=== PATIENT | male | born 1990 | race Caucasian/White ===

== ENCOUNTER 2017-06-09 20:28 | Inpatient (IN) | payer OTHER ==
[~2017-06-09] VITALS: Ht 175.3 cm; Wt 58.0 kg
[2017-06-09 20:31] VITALS: Ht 175.3 cm; Wt 58.0 kg
[2017-06-09] MEDS ORDERED: SOD CHLORIDE 0.9% 1,000 ML IV STA ×2 (20:34→22:30)
[2017-06-09] MEDS ORDERED: LORAZEPAM 2 MG INJ IV STA (20:34)
[2017-06-09] MEDS ORDERED: IBUP200C11 PO (22:13)
[2017-06-09] MEDS ORDERED: LORAZEPAM 2 MG INJ IV ONE (22:30)
--- NOTE | 2017-06-09 22:46 | ERA ---
ER Documentation Chief Complaint Date/Time DATE: 06/09/17 TIME: 22:42 Chief Complaint BIB RA FROM HOME FOR METH USE X 3 DAYS HPI This is a 27-year-old male who is brought in via EMS after his family wanted him arrested for using methamphetamine. The patient states that he has been using methamphetamine for 3 days. He states that he used methamphetamine just prior to arrival. He denies any suicidal homicidal ideation. He otherwise has no complaints. Family members not accompanying the patient upon arrival. ROS All systems reviewed and are negative except as per history of present illness. Medications Home Meds Reported Medications Ibuprofen* (Advil*) 200 Mg Capsule, 200 MG PO Q6H Y for PAIN, CAP 06/09/17 Allergies Allergies: Coded Allergies: No Known Allergy (Unverified , 06/09/17) PMhx/Soc Medical and Surgical Hx: pt denies Medical Hx, pt denies Surgical Hx Hx Alcohol Use: Yes Hx Substance Use: Yes Hx Tobacco Use: Yes Smoking Status: Current every day smoker FmHx Family History: No diabetes Physical Exam Vitals Vital Signs Date Time Temp Pulse Resp B/P Pulse Ox O2 Delivery O2 Flow Rate FiO2 06/09/17 22:21 98.0 109 22 149/95 98 Room Air 06/09/17 20:31 98.5 131 18 126/81 100 Physical Exam General: Disheveled and slightly agitated but otherwise cooperative Head: Normocephalic, atraumatic. Eyes: Pupils equally reactive, EOM intact ENT: Moist mucous membranes Neck: Supple, no lymphadenopathy Respiratory: Lungs clear bilaterally, no distress Cardiovascular: tachy, no murmurs, rubs, or gallops Abdominal: Soft, non-tender, non-distended, no peritoneal signs : Deferred MSK: No edema, no unilateral swelling, 5/5 strength Neurologic: Alert and oriented, moving all extremities, normal speech, no focal weakness, no cerebellar signs Skin: No rash Psych: Normal moodDenies suicidal ideation Results 24 hrs Current Medications Medications (Trade) Dose Ordered Sig/Rola Route PRN Reason Start Time Stop Time Status Last Admin Dose Admin Sodium Chloride (NS) 1,000 ml @ 1,000 mls/hr Q1H STAT IV 06/09/17 20:34 06/09/17 21:33 DC 06/09/17 20:46 Lorazepam 1 mg 1 mg ONCE STAT IV 06/09/17 20:34 06/09/17 20:36 DC 06/09/17 20:46 Sodium Chloride (NS) 1,000 ml @ 1,000 mls/hr Q1H STAT IV 06/09/17 22:30 06/09/17 23:29 06/09/17 22:41 Lorazepam (Ativan) 2 mg ONCE ONCE IV 06/09/17 22:30 06/09/17 22:31 DC 06/09/17 22:41 Procedures/MDM MEDICAL DECISION MAKING: The patient's presentation is consistent with acute methamphetamine intoxication and sympathomimetic intoxication I have a much lower clinical concern for clinically significant traumatic brain injury, meningitis, significant electrolyte disturbance or rhabdomyolysis The patient's workup will include symptom control and observation for sobriety The patient's presentation is most consistent with acute methamphetamine intoxication leading to acute encephalopathy. The patient is protecting their airway. The patient has no signs or symptoms concerning for impending respiratory failure and does not require intubation at this time. The patient will require observation in the emergency room to allow for metabolization. Once the patient is able to ambulate on their own accord, navigate the community the patient can be safely discharged from the emergency room. ER COURSE: The patient was given 1 L of saline, 1 mg of Ativan. However the patient remains agitated and tachycardic at 120. Patient was given a second liter of IV fluids and 2 more milligrams of Ativan with improved symptomatology. The patient will require observation in the emergency department until he has metabolized his methamphetamines. The patient is not suicidal. We are not a detox center and the patient's family was informed via the nurse that the patient will need to be discharged, professor of social work resources and outpatient detox center information will be provided to the patient upon discharge. He is not suicidal and not a danger to himself or others. Observation Note: Indication: Methamphetamine intoxication Duration: Greater than 4 hours Family history: As described above The patient was observed with serial exams over the above timeframe. The patient continued to be well-appearing, and observation continued without complication. I kept the patient and/or family informed of laboratory and diagnostic imaging results throughout the emergency room course. DISPOSITION PLAN: Patient endorsed a Dr. Hernández, once sober and appropriate he will be discharged Departure Diagnosis: Primary Impression: Overdose of sympathomimetic agent Qualified Code: T44.901A - Overdose of sympathomimetic agent, accidental or unintentional, initial encounter Additional Impression: Methamphetamine abuse Condition: Stable CHAGO FINLEY MD Jun 09, 2017 22:46
[2017-06-10] MEDS ORDERED: DIPHENHYDRAMINE 50 MG INJ IM ONE (00:30)
[2017-06-10] MEDS ORDERED: HALOPERIDOL 5 MG INJ IM ONE (00:30)
[2017-06-10] MEDS ORDERED: PANTOPRAZOLE (EC) 40 MG TAB PO ONE (10:00)
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
[2017-06-10 11:02] LABS: CALCIUM 9.7 mg/dl (8.4-10.2); CREATININE 1.22 mg/dl (0.61-1.24)
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
[2017-06-10 12:44] LABS: BASOPHIL # 0.1 10^3/ul (0.0-0.1); BASOPHILS % 0.5 % (0.0-2.0); EOSINOPHILS # 0.1 10^3/ul (0.0-0.5); EOSINOPHILS % 0.6 % (0.0-7.0); HEMATOCRIT 46.2 % (42.0-52.0); HEMOGLOBIN 15.8 g/dl (14.0-18.0); LYMPHOCYTES # 1.9 10^3/ul (0.8-2.9); LYMPHOCYTES % 18.6 % (15.0-51.0); MEAN CORPUSCULAR HGB CONC 34.2 g/dl (32.0-37.0); MEAN CORPUSCULAR VOLUME 90.6 fl (82.0-101.0); MEAN PLATELET VOLUME 10.7 fl (7.4-10.4); MONOCYTE # 0.7 10^3/ul (0.3-0.9); MONOCYTES % 6.2 % (0.0-11.0); NEUTROPHIL # 7.7 10^3/ul (1.6-7.5); NEUTROPHILS % 73.8 % (39.0-77.0); PLATELET COUNT 173 10^3/UL (140-415); WHITE BLOOD COUNT 10.5 10^3/ul (4.8-10.8)
[2017-06-10] MEDS ORDERED: SOD CHLORIDE 0.9% 2,000 ML IV ONE (13:00)
[2017-06-10] MEDS ORDERED: ACETAMINOPHEN 325 MG TAB PO PRN ×2 (13:30→14:30)
[2017-06-10] MEDS ORDERED: ONDANSETRON 4 MG INJ IV PRN ×2 (13:30→14:30)
[2017-06-10] MEDS ORDERED: ACETAMINOPHEN 650 MG SUPP PR PRN (14:30)
[2017-06-10] MEDS ORDERED: NACL 0.9% 3 ML SYG IV SCH (14:30)
[2017-06-10] MEDS ORDERED: MAGNESIUM HYDROXIDE 30ML CUP PO PRN (14:30)
[2017-06-10] MEDS ORDERED: DOCUSATE SODIUM 100 MG CAP PO PRN (14:30)
[2017-06-10] MEDS ORDERED: LORAZEPAM 2 MG INJ IV PRN (14:30)
[2017-06-10] MEDS ORDERED: BISACODYL 10 MG SUPP PR PRN (14:30)
[2017-06-10] MEDS: SOD CHLORIDE 0.9% 1,000 ML IV SCH ×2 (16:35→19:55)
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
[2017-06-10 17:00] VITALS: TEMP 98.3
[2017-06-10] MEDS ORDERED: OLANZAPINE (ODT) 5 MG TAB ODT PRN (17:00)
[2017-06-10 21:20] VITALS: BP 130/78; RESP 22
[2017-06-10] MEDS ORDERED: traMADol 50 MG TAB PO ONE (23:30)
[2017-06-10] MEDS ORDERED: traMADol 50 MG TAB PO PRN (23:30)
[2017-06-11 02:35] VITALS: BP 127/75; RESP 22
[2017-06-11] MEDS: SOD CHLORIDE 0.9% 1,000 ML IV SCH ×3 (04:06→22:04)
[2017-06-11] MEDS: PANTOPRAZOLE 40 MG INJ IV SCH (05:20)
[2017-06-11 07:27] LABS: ALBUMIN 3.2 g/dl (3.3-4.9); ALBUMIN/GLOBULIN RATIO 1.28; BILIRUBIN,INDIRECT 0.2 mg/dl (0-1.1); BILIRUBIN,TOTAL 0.2 mg/dl (0.2-1.3); CALCIUM 8.6 mg/dl (8.4-10.2); CHOL/HDL RATIO 2.3 RATIO; CREATININE 0.9 mg/dl (0.61-1.24); MAGNESIUM 1.9 mg/dl (1.7-2.5); PHOSPHORUS 3.2 mg/dl (2.5-4.9); POTASSIUM 3.8 mmol/L (3.5-5.1); TOTAL PROTEIN 5.7 g/dl (6.1-8.1)
[2017-06-11 08:00] LABS: T3 UPTAKE 40.2 % (23.5-40.5)
[2017-06-11 08:14] LABS: THYROID STIMULATING HORMONE 1.43 MIU/L (0.465-4.680)
--- NOTE | 2017-06-11 11:53 | RADRPT ---
PROCEDURE: XR Foot. CLINICAL INDICATION: Right foot swelling, rule out fracture TECHNIQUE: AP, lateral and oblique views of the right foot was obtained. The images were reviewed on a PACS workstation. COMPARISON: None FINDINGS: The bones of the foot appear intact, with no evidence of fracture, dislocation, or subluxation. The joint spaces are preserved. Bone mineralization is normal. No significant soft tissue swelling is se en. IMPRESSION: No acute fracture or dislocation of the right foot. RPTAT: QQ Physician Zoraida Date Time Electronically viewed and signed by Physician Zoraida on 06/11/2017 11:53 /
[2017-06-11] MEDS: GABAPENTIN 100 MG CAP PO SCH ×2 (13:05→21:34)
--- NOTE | 2017-06-11 16:00 | PN ---
Date/Time of Note Date/Time of Note DATE: 06/11/17 TIME: 15:58 Assessment/Plan VTE Prophylaxis VTE Prophylaxis Intervention: SCD's Lines/Catheters IV Catheter Type (from Nrsg): Peripheral IV Assessment/Plan Assessment/Plan 1. Altered mental status secondary to methamphetamine use. Of note patient reportedly smokes multivitamin every day however the day prior to admission he did admit to swallowing a bag of methamphetamine. Patient more oriented at this time. Cessation advised at this time. adz worker to follow. 2. Suicide attempt. Patient seen by telepsych outbound sales consultant. Continue on Zyprexa Zydis 5 mg orally every 8 hours as needed for agitation. Tentative plan for inpatient psychiatric transfer once medically stable. Continue on 5150 hold for now. 3. Methamphetamine abuse. Cessation advised. adz worker to follow. 4. Rhabdomyolysis. Continue aggressive IV hydration. CK total pending 5. Right Ankle pain- possible sprain, will order x ray right ankle, 3 views Family requested meeting, will have public health social worker to work on it SCD Fof DVT prophylaxis Subjective 24 Hr Interval Summary Free Text/Dictation c/o right ankle pain, BP stable, on Sitter Exam/Review of Systems Vital Signs Vitals Vital Signs Date Time Temp Pulse Resp B/P Pulse Ox O2 Delivery O2 Flow Rate FiO2 06/11/17 02:35 98.5 78 22 127/75 100 06/10/17 17:00 Room Air Intake and Output 06/10/17 06/10/17 06/11/17 15:00 23:00 07:00 Intake Total 2125 ml Balance 2125 ml Exam Constitutional: alert, other (More oriented but does appear to be in withdrawals from methamphetamine use) Head: normocephalic Eyes: nl conjunctiva Respiratory: wheezing Cardiovascular: other (Regular rate to tachycardic) Musculoskeletal: nl extremities to inspection Extremities: normal pulses Skin: other (Noted with abrasions on bilateral upper and lower extremities) Results Result Diagram: 06/10/17 1032 06/11/17 0548 Results 24 hrs Laboratory Tests Test 06/11/17 05:48 Sodium Level 140 Potassium Level 3.8 Chloride Level 108 Carbon Dioxide Level 28 Anion Gap 8 Blood Urea Nitrogen 12 # Creatinine 0.90 Glucose Level 102 # Hemoglobin A1c 5.1 Calcium Level 8.6 Phosphorus Level 3.2 Magnesium Level 1.9 Total Bilirubin 0.2 Direct Bilirubin 0.00 Indirect Bilirubin 0.2 Aspartate Amino Transf (AST/SGOT) 737 H Alanine Aminotransferase (ALT/SGPT) 241 H Alkaline Phosphatase 56 Total Protein 5.7 L Albumin 3.2 L Globulin 2.50 Albumin/Globulin Ratio 1.28 Triglycerides Level 77 Cholesterol Level 99 L LDL Cholesterol, Calculated 42 HDL Cholesterol 42 Cholesterol/HDL Ratio 2.3 Thyroid Stimulating Hormone (TSH) 1.430 Free Thyroxine Index 2.77 Thyroxine (T4) 6.9 Triiodothyronine (T3) Uptake 40.2 Medications Medications Current Medications Sodium Chloride (NS) 1,000 ml @ 125 mls/hr Q8H IV Last administered on 13:05; Admin Dose 125 MLS/HR; Start 06/10/17 at 14:04 Ondansetron HCl (Zofran Inj) 4 mg Q6H PRN IV NAUSEA AND/OR VOMITING; Start at 14:30 Acetaminophen (Tylenol Tab) 650 mg Q6H PRN PO PAIN LEVEL 1-3 OR FEVER Last administered on 06/10/17 19:55; Admin Dose 650 MG; Start 06/10/17 at 14:30 Acetaminophen (Tylenol Supp) 650 mg Q6H PRN [place] PAIN LEVEL 1-3 OR FEVER; Start 06/10/17 at 14:30 Docusate Sodium (Colace) 100 mg Q12H PRN PO CONSTIPATION; Start 06/10/17 at 14: 30 Magnesium Hydroxide (Milk Of Mag) 30 ml DAILY PRN PO CONSTIPATION; Start at 14:30 Bisacodyl (Dulcolax Supp) 10 mg DAILY PRN [place] CONSTIPATION; Start 06/10/17 at 14 :30 Pantoprazole (Protonix Iv) 40 mg DAILY@06 IV Last administered on 06/11/17 05: 20; Admin Dose 40 MG; Start 06/11/17 at 06:00 Lorazepam (Ativan) 0.5 mg Q2 PRN IV agitation; Start 06/10/17 at 14:30 Olanzapine (Zyprexa Zydis) 5 mg Q8 PRN ODT agitation; Start 06/10/17 at 17:00 Tramadol HCl (Ultram) 50 mg Q6H PRN PO pain Last administered on 06/11/17 08: 13; Admin Dose 50 MG; Start 06/10/17 at 23:30 Gabapentin (Neurontin) 100 mg BID PO Last administered on 06/11/17t 13:05; Admin Dose 100 MG; Start 06/11/17 at 11:00 PRINCE FRANCOIS MD Jun 11, 2017 16:00
[2017-06-11 19:37] VITALS: BP 138/88; RESP 19
[2017-06-12] MEDS: SOD CHLORIDE 0.9% 1,000 ML IV SCH ×3 (01:48→20:42)
[2017-06-12] MEDS: PANTOPRAZOLE 40 MG INJ IV SCH (05:03)
[2017-06-12] MEDS: GABAPENTIN 100 MG CAP PO SCH ×2 (08:24→20:41)
--- NOTE | 2017-06-12 23:58 | PN ---
Date/Time of Note Date/Time of Note DATE: 06/12/17 TIME: 23:58 Assessment/Plan VTE Prophylaxis VTE Prophylaxis Intervention: SCD's Lines/Catheters IV Catheter Type (from [facility]): Peripheral IV Urinary Cath still in place: No Assessment/Plan Chief Complaint/Hosp Course Impression and plan 1. Altered mental status secondary to methamphetamine use. Of note patient reportedly smokes multivitamin every day however the day prior to admission he did admit to swallowing a bag of methamphetamine. Improved at this time. ice cream vault worker following 2. Suicide attempt. Patient seen by telepsych loans consultant. Continue on Zyprexa Zydis 5 mg orally every 8 hours as needed for agitation. Tentative plan for inpatient psychiatric transfer once medically stable. Continue on 5150 hold for now. 3. Methamphetamine abuse. Cessation advised. ice cream vault worker to follow. 4. Rhabdomyolysis. Continue aggressive IV hydration. Still with elevated CK. Will await for clinical improvement DISPO/PLAN: cont iv hydration. monitor for downward trend of CK. d/c when medically stable Discussed plan of care with Dr. Hedrick Problems: Subjective 24 Hr Interval Summary Free Text/Dictation more awake and alert. comfortable at present Exam/Review of Systems Vital Signs Vitals Vital Signs Date Time Temp Pulse Resp B/P Pulse Ox O2 Delivery O2 Flow Rate FiO2 06/11/17 19:37 99.0 84 19 138/88 99 06/10/17 17:00 Room Air Intake and Output 06/11/17 06/11/17 06/12/17 15:00 23:00 07:00 Intake Total 1100 ml 1775 ml Balance 1100 ml 1775 ml Exam Constitutional: alert, oriented Psych: nl mood/affect Head: normocephalic Respiratory: clear to auscultation Cardiovascular: regular rate and rhythm Gastrointestinal: non-tender, soft Musculoskeletal: nl extremities to inspection Neurological: DELI COOK II-XII intact, nl mental status, nl speech Skin: other (noted with abrasians BUE and BLE ) Results Result Diagram: 06/10/17 1032 06/11/17 0548 Results 24 hrs Laboratory Tests Test 06/12/17 05:35 Creatine Kinase 90175 #H Medications Medications Current Medications Sodium Chloride (NS) 1,000 ml @ 125 mls/hr Q8H IV Last administered on t 20:42; Admin Dose 125 MLS/HR; Start 06/10/17 at 14:04 Ondansetron HCl (Zofran Inj) 4 mg Q6H PRN IV NAUSEA AND/OR VOMITING; Start at 14:30 Acetaminophen (Tylenol Tab) 650 mg Q6H PRN PO PAIN LEVEL 1-3 OR FEVER Last administered on 06/10/17 19:55; Admin Dose 650 MG; Start 06/10/17 at 14:30 Acetaminophen (Tylenol Supp) 650 mg Q6H PRN [place] PAIN LEVEL 1-3 OR FEVER; Start 06/10/17 at 14:30 Docusate Sodium (Colace) 100 mg Q12H PRN PO CONSTIPATION; Start 06/10/17 at 14: 30 Magnesium Hydroxide (Milk Of Mag) 30 ml DAILY PRN PO CONSTIPATION; Start at 14:30 Bisacodyl (Dulcolax Supp) 10 mg DAILY PRN [place] CONSTIPATION; Start 06/10/17 at 14 :30 Lorazepam (Ativan) 0.5 mg Q2 PRN IV agitation; Start 06/10/17 at 14:30 Olanzapine (Zyprexa Zydis) 5 mg Q8 PRN ODT agitation; Start 06/10/17 at 17:00 Tramadol HCl (Ultram) 50 mg Q6H PRN PO pain Last administered on 06/11/17 08: 13; Admin Dose 50 MG; Start 06/10/17 at 23:30 Gabapentin (Neurontin) 100 mg BID PO Last administered on 06/12/17 20:41; Admin Dose 100 MG; Start 06/11/17 at 11:00 Pantoprazole (Protonix Tab) 40 mg DAILY@06 PO ; Start 06/13/17 at 06:00 OMERO FIELD Jun 12, 2017 23:58
[2017-06-13] MEDS: PANTOPRAZOLE (EC) 40 MG TAB PO SCH (05:32)
[2017-06-13] MEDS: SOD CHLORIDE 0.9% 1,000 ML IV SCH ×3 (05:32→22:04)
[2017-06-13 06:17] LABS: BASOPHIL # 0.1 10^3/ul (0.0-0.1); BASOPHILS % 0.8 % (0.0-2.0); EOSINOPHILS # 0.4 10^3/ul (0.0-0.5); EOSINOPHILS % 4.2 % (0.0-7.0); HEMOGLOBIN 14.2 g/dl (14.0-18.0); LYMPHOCYTES # 3.1 10^3/ul (0.8-2.9); LYMPHOCYTES % 36.3 % (15.0-51.0); MEAN CORPUSCULAR HEMOGLOBIN 30.9 pg (29.0-33.0); MEAN CORPUSCULAR HGB CONC 33.8 g/dl (32.0-37.0); MEAN CORPUSCULAR VOLUME 91.5 fl (82.0-101.0); MEAN PLATELET VOLUME 10.8 fl (7.4-10.4); MONOCYTE # 0.9 10^3/ul (0.3-0.9); MONOCYTES % 10.1 % (0.0-11.0); NEUTROPHIL # 4.1 10^3/ul (1.6-7.5); NEUTROPHILS % 48.4 % (39.0-77.0); PLATELET COUNT 161 10^3/UL (140-415); RED BLOOD COUNT 4.59 10^6/ul (4.70-6.10); RED CELL DISTRIBUTION WIDTH 12.3 % (11.5-14.5); WHITE BLOOD COUNT 8.4 10^3/ul (4.8-10.8)
[2017-06-13 06:37] LABS: CALCIUM 9.6 mg/dl (8.4-10.2); CREATININE 0.84 mg/dl (0.61-1.24); POTASSIUM 5.2 mmol/L (3.5-5.1)
[2017-06-13 07:48] VITALS: BP 123/76; RESP 19
[2017-06-13] MEDS: GABAPENTIN 100 MG CAP PO SCH ×2 (10:33→20:00)
--- NOTE | 2017-06-13 13:06 | PN ---
Date/Time of Note Date/Time of Note DATE: 06/13/17 TIME: 13:04 Assessment/Plan VTE Prophylaxis VTE Prophylaxis Intervention: ambulation, SCD's Lines/Catheters IV Catheter Type (from [facility]): Peripheral IV Urinary Cath still in place: No Assessment/Plan Chief Complaint/Hosp Course Impression and plan 1. Altered mental status secondary to methamphetamine use. Of note patient reportedly smokes multivitamin every day however the day prior to admission he did admit to swallowing a bag of methamphetamine. Improved at this time. health outreach worker following 2. Suicide attempt. Patient seen by telepsych air quality consultant. Continue on Zyprexa Zydis 5 mg orally every 8 hours as needed for agitation. Tentative plan for inpatient psychiatric transfer once medically stable. Continue on 5150 hold for now. 3. Methamphetamine abuse. Cessation advised. health outreach worker following 4. Rhabdomyolysis. Continue aggressive IV hydration. Still with elevated CK. Will await for clinical improvement DISPO/PLAN: cont iv hydration. CK continues to downward trend. Await for further improvement. d/c when medically stable to inpatient psych facility Discussed plan of care with Dr. Hedrick Problems: Subjective 24 Hr Interval Summary Free Text/Dictation comfortable at present. no s/s of distress. 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, nl mental status, nl speech Skin: other (noted with abrasians BUE and BLE ) Results Result Diagram: 06/13/17 0536 06/13/17 0536 Results 24 hrs Laboratory Tests Test 06/13/17 05:36 White Blood Count 8.4 Red Blood Count 4.59 L Hemoglobin 14.2 Hematocrit 42.0 Mean Corpuscular Volume 91.5 Mean Corpuscular Hemoglobin 30.9 Mean Corpuscular Hemoglobin Concent 33.8 Red Cell Distribution Width 12.3 Platelet Count 161 Mean Platelet Volume 10.8 H Neutrophils % 48.4 Lymphocytes % 36.3 Monocytes % 10.1 Eosinophils % 4.2 Basophils % 0.8 Nucleated Red Blood Cells % 0.0 Neutrophils # 4.1 Lymphocytes # 3.1 H Monocytes # 0.9 Eosinophils # 0.4 Basophils # 0.1 Nucleated Red Blood Cells # 0.0 Sodium Level 143 Potassium Level 5.2 H Chloride Level 104 Carbon Dioxide Level 35 H Anion Gap 9 Blood Urea Nitrogen 9 Creatinine 0.84 Glucose Level 96 Calcium Level 9.6 Creatine Kinase 13168 #H Medications Medications Current Medications Sodium Chloride (NS) 1,000 ml @ 125 mls/hr Q8H IV Last administered on 05:32; Admin Dose 125 MLS/HR; Start 06/10/17 at 14:04 Ondansetron HCl (Zofran Inj) 4 mg Q6H PRN IV NAUSEA AND/OR VOMITING; Start at 14:30 Acetaminophen (Tylenol Tab) 650 mg Q6H PRN PO PAIN LEVEL 1-3 OR FEVER Last administered on 06/10/17 19:55; Admin Dose 650 MG; Start 06/10/17 at 14:30 Acetaminophen (Tylenol Supp) 650 mg Q6H PRN [place] PAIN LEVEL 1-3 OR FEVER; Start 06/10/17 at 14:30 Docusate Sodium (Colace) 100 mg Q12H PRN PO CONSTIPATION; Start 06/10/17 at 14: 30 Magnesium Hydroxide (Milk Of Mag) 30 ml DAILY PRN PO CONSTIPATION; Start at 14:30 Bisacodyl (Dulcolax Supp) 10 mg DAILY PRN [place] CONSTIPATION; Start 06/10/17 at 14 :30 Lorazepam (Ativan) 0.5 mg Q2 PRN IV agitation; Start 06/10/17 at 14:30 Olanzapine (Zyprexa Zydis) 5 mg Q8 PRN ODT agitation; Start 06/10/17 at 17:00 Tramadol HCl (Ultram) 50 mg Q6H PRN PO pain Last administered on 06/11/17 08: 13; Admin Dose 50 MG; Start 06/10/17 at 23:30 Gabapentin (Neurontin) 100 mg BID PO Last administered on 06/13/17 10:33; Admin Dose 100 MG; Start 06/11/17 at 11:00 Pantoprazole (Protonix Tab) 40 mg DAILY@06 PO Last administered on 06/13/17 05 :32; Admin Dose 40 MG; Start 06/13/17 at 06:00 OMERO FIELD Jun 13, 2017 13:06
[2017-06-13 14:15] VITALS: BP 134/75; RESP 18
[2017-06-13 20:00] VITALS: BP 135/91; RESP 20
[2017-06-14 02:00] VITALS: BP 129/87; RESP 20
[2017-06-14 06:02] LABS: BASOPHIL # 0.1 10^3/ul (0.0-0.1); BASOPHILS % 0.9 % (0.0-2.0); EOSINOPHILS # 0.4 10^3/ul (0.0-0.5); EOSINOPHILS % 4.6 % (0.0-7.0); HEMATOCRIT 41.3 % (42.0-52.0); HEMOGLOBIN 14.4 g/dl (14.0-18.0); LYMPHOCYTES # 2.9 10^3/ul (0.8-2.9); LYMPHOCYTES % 35.9 % (15.0-51.0); MEAN CORPUSCULAR HEMOGLOBIN 31.2 pg (29.0-33.0); MEAN CORPUSCULAR HGB CONC 34.9 g/dl (32.0-37.0); MEAN CORPUSCULAR VOLUME 89.4 fl (82.0-101.0); MONOCYTE # 0.8 10^3/ul (0.3-0.9); MONOCYTES % 9.9 % (0.0-11.0); NEUTROPHIL # 3.9 10^3/ul (1.6-7.5); NEUTROPHILS % 48.2 % (39.0-77.0); PLATELET COUNT 179 10^3/UL (140-415); RED BLOOD COUNT 4.62 10^6/ul (4.70-6.10); WHITE BLOOD COUNT 8.1 10^3/ul (4.8-10.8)
[2017-06-14] MEDS: SOD CHLORIDE 0.9% 1,000 ML IV SCH ×3 (06:17→22:27)
[2017-06-14] MEDS: PANTOPRAZOLE (EC) 40 MG TAB PO SCH (06:17)
[2017-06-14 06:32] LABS: CALCIUM 9.3 mg/dl (8.4-10.2); CREATININE 0.82 mg/dl (0.61-1.24); POTASSIUM 4.2 mmol/L (3.5-5.1)
[2017-06-14 07:36] VITALS: BP 129/78; RESP 20
[2017-06-14] MEDS: GABAPENTIN 100 MG CAP PO SCH ×2 (08:23→20:00)
--- NOTE | 2017-06-14 10:45 | PN ---
Date/Time of Note Date/Time of Note DATE: 06/14/17 TIME: 10:44 Assessment/Plan VTE Prophylaxis VTE Prophylaxis Intervention: ambulation Lines/Catheters IV Catheter Type (from [facility]): Peripheral IV Urinary Cath still in place: No Assessment/Plan Chief Complaint/Hosp Course 1. Suicidal ideation with suicidal attempt. Status post evaluation by telemetry psych. Patient on 5150 hold. Continue mood stabilizers. 2. Rhabdomyolysis. Continue IV hydration. Renal function within normal limits. 3. Substance abuse. Status post evaluation by telemetry psych. Cessation advised. 4. Acute encephalopathy. Most probably toxic metabolic secondary to drug overdose. Resolved. 5. Fluids, electrolytes, and nutrition. Regular diet. 6. DVT prophylaxis. Ambulation. 7. Plan. Continue aggressive IV hydration. Continue current care. Continue one-to-one sitter. We will discharge the patient to inpatient psych facility once the patient's rhabdomyolysis is better. Case discussed with . Problems: Subjective 24 Hr Interval Summary Free Text/Dictation Patient has a one-to-one sitter in place. Denies any suicidal ideations. Exam/Review of Systems Vital Signs Vitals Vital Signs Date Time Temp Pulse Resp B/P Pulse Ox O2 Delivery O2 Flow Rate FiO2 06/14/17 07:36 98.1 72 20 129/78 100 06/10/17 17:00 Room Air Intake and Output 06/13/17 06/13/17 06/14/17 15:00 23:00 07:00 Intake Total 1000 ml 2110 ml 1595 ml Balance 1000 ml 2110 ml 1595 ml Exam General: Adequately build 27 year-old male lying in bed in no apparent distress. HEENT: Normocephalic, atraumatic. Eyes: Anicteric sclerae, conjunctivae clear. ENT: Nasal septum midline, oral mucosa moist. Poor dentition. Neck supple, no JVD noticed. Respiratory: Bilaterally clear breath sounds. No use of accessory muscles of respiration. No adventitious breath sounds. Cardiovascular: S1, S2 heard. No murmurs or gallops. Abdomen: Soft, nontender, and nondistended. Bowel sounds positive in all 4 quadrants. Genitourinary: Deferred. Extremities: No cyanosis, no clubbing, no edema. Peripheral pulses palpable. Neurologic: Cranial nerves II through XII grossly intact. The patient is awake, alert, and oriented. Results Result Diagram: 06/14/17 0430 06/14/17 0430 Results 24 hrs Laboratory Tests Test 06/14/17 04:30 White Blood Count 8.1 Red Blood Count 4.62 L Hemoglobin 14.4 Hematocrit 41.3 L Mean Corpuscular Volume 89.4 Mean Corpuscular Hemoglobin 31.2 Mean Corpuscular Hemoglobin Concent 34.9 Red Cell Distribution Width 12.0 Platelet Count 179 Mean Platelet Volume 11.0 H Neutrophils % 48.2 Lymphocytes % 35.9 Monocytes % 9.9 Eosinophils % 4.6 Basophils % 0.9 Nucleated Red Blood Cells % 0.0 Neutrophils # 3.9 Lymphocytes # 2.9 Monocytes # 0.8 Eosinophils # 0.4 Basophils # 0.1 Nucleated Red Blood Cells # 0.0 Sodium Level 138 Potassium Level 4.2 Chloride Level 101 Carbon Dioxide Level 32 H Anion Gap 9 Blood Urea Nitrogen 14 Creatinine 0.82 Glucose Level 84 Calcium Level 9.3 Creatine Kinase 8640 #H Medications Medications Current Medications Sodium Chloride (NS) 1,000 ml @ 125 mls/hr Q8H IV Last administered on 06:17; Admin Dose 125 MLS/HR; Start 06/10/17 at 14:04 Ondansetron HCl (Zofran Inj) 4 mg Q6H PRN IV NAUSEA AND/OR VOMITING; Start at 14:30 Acetaminophen (Tylenol Tab) 650 mg Q6H PRN PO PAIN LEVEL 1-3 OR FEVER Last administered on 06/10/17 19:55; Admin Dose 650 MG; Start 06/10/17 at 14:30 Acetaminophen (Tylenol Supp) 650 mg Q6H PRN [place] PAIN LEVEL 1-3 OR FEVER; Start 06/10/17 at 14:30 Docusate Sodium (Colace) 100 mg Q12H PRN PO CONSTIPATION; Start 06/10/17 at 14: 30 Magnesium Hydroxide (Milk Of Mag) 30 ml DAILY PRN PO CONSTIPATION; Start at 14:30 Bisacodyl (Dulcolax Supp) 10 mg DAILY PRN [place] CONSTIPATION; Start 06/10/17 at 14 :30 Lorazepam (Ativan) 0.5 mg Q2 PRN IV agitation; Start 06/10/17 at 14:30 Olanzapine (Zyprexa Zydis) 5 mg Q8 PRN ODT agitation; Start 06/10/17 at 17:00 Tramadol HCl (Ultram) 50 mg Q6H PRN PO pain Last administered on 06/11/17 08: 13; Admin Dose 50 MG; Start 06/10/17 at 23:30 Gabapentin (Neurontin) 100 mg BID PO Last administered on 06/14/17 08:23; Admin Dose 100 MG; Start 06/11/17 at 11:00 Pantoprazole (Protonix Tab) 40 mg DAILY@06 PO Last administered on 06/14/17 06 :17; Admin Dose 40 MG; Start 06/13/17 at 06:00 SHAUN BRADEN NP Jun 14, 2017 10:45
[2017-06-14 14:44] LABS: BARBITURATES Negative (NEGATIVE)
[2017-06-14 14:45] LABS: BENZODIAZEPINES Negative (NEGATIVE); CANNABINOIDS Negative (NEGATIVE); COCAINE Negative (NEGATIVE); OPIATES Negative (NEGATIVE)
[2017-06-14 15:00] VITALS: BP 117/70; RESP 20
[2017-06-14 19:18] VITALS: BP 132/81; RESP 20
[2017-06-15 02:00] VITALS: BP 139/87; RESP 20
[2017-06-15] MEDS: PANTOPRAZOLE (EC) 40 MG TAB PO SCH (05:32)
[2017-06-15 05:53] LABS: BASOPHIL # 0.1 10^3/ul (0.0-0.1); BASOPHILS % 0.9 % (0.0-2.0); EOSINOPHILS # 0.4 10^3/ul (0.0-0.5); HEMATOCRIT 44.8 % (42.0-52.0); HEMOGLOBIN 15.3 g/dl (14.0-18.0); LYMPHOCYTES # 2.6 10^3/ul (0.8-2.9); LYMPHOCYTES % 33.6 % (15.0-51.0); MEAN CORPUSCULAR HGB CONC 34.2 g/dl (32.0-37.0); MEAN CORPUSCULAR VOLUME 90.7 fl (82.0-101.0); MEAN PLATELET VOLUME 10.6 fl (7.4-10.4); MONOCYTE # 0.8 10^3/ul (0.3-0.9); MONOCYTES % 9.7 % (0.0-11.0); NEUTROPHIL # 3.9 10^3/ul (1.6-7.5); NEUTROPHILS % 50.4 % (39.0-77.0); PLATELET COUNT 222 10^3/UL (140-415); RED BLOOD COUNT 4.94 10^6/ul (4.70-6.10); RED CELL DISTRIBUTION WIDTH 12.3 % (11.5-14.5); WHITE BLOOD COUNT 7.8 10^3/ul (4.8-10.8)
[2017-06-15] MEDS: SOD CHLORIDE 0.9% 1,000 ML IV SCH ×3 (06:00→22:10)
[2017-06-15 06:28] LABS: MAGNESIUM 1.8 mg/dl (1.7-2.5); PHOSPHORUS 4.1 mg/dl (2.5-4.9)
[2017-06-15 06:54] LABS: CALCIUM 9.4 mg/dl (8.4-10.2); CREATININE 0.85 mg/dl (0.61-1.24); POTASSIUM 4.5 mmol/L (3.5-5.1)
[2017-06-15 07:30] VITALS: BP 143/77; RESP 18
[2017-06-15] MEDS: GABAPENTIN 100 MG CAP PO SCH ×2 (09:41→20:54)
--- NOTE | 2017-06-15 10:27 | PN ---
Date/Time of Note Date/Time of Note DATE: 06/15/17 TIME: 10:27 Assessment/Plan VTE Prophylaxis VTE Prophylaxis Intervention: ambulation Lines/Catheters IV Catheter Type (from [facility]): Peripheral IV Urinary Cath still in place: No Assessment/Plan Chief Complaint/Hosp Course 1. Suicidal ideation with suicidal attempt. Status post evaluation by telemetry psych. Patient on 5150 hold. Continue mood stabilizers. 2. Rhabdomyolysis. Continue IV hydration. Renal function within normal limits. 3. Substance abuse. Status post evaluation by telemetry psych. Cessation advised. 4. Acute encephalopathy. Most probably toxic metabolic secondary to drug overdose. Resolved. 5. Fluids, electrolytes, and nutrition. Regular diet. 6. DVT prophylaxis. Ambulation. 7. Plan. Continue aggressive IV hydration. Continue current care. Continue one-to-one sitter. We will discharge the patient to inpatient psych facility once the patient's rhabdomyolysis is better. Case discussed with . Problems: Subjective 24 Hr Interval Summary Free Text/Dictation Continues to have a one-to-one sitter in place. Denies any anxiety. Exam/Review of Systems Vital Signs Vitals Vital Signs Date Time Temp Pulse Resp B/P Pulse Ox O2 Delivery O2 Flow Rate FiO2 06/15/17 07:30 98.6 80 18 143/77 98 Intake and Output 06/14/17 06/14/17 06/15/17 15:00 23:00 07:00 Intake Total 1000 ml 1992.5 ml 2257.5 ml Balance 1000 ml 1992.5 ml 2257.5 ml Exam General: Adequately build 27 year-old male lying in bed in no apparent distress. HEENT: Normocephalic, atraumatic. Eyes: Anicteric sclerae, conjunctivae clear. ENT: Nasal septum midline, oral mucosa moist. Poor dentition. Neck supple, no JVD noticed. Respiratory: Bilaterally clear breath sounds. No use of accessory muscles of respiration. No adventitious breath sounds. Cardiovascular: S1, S2 heard. No murmurs or gallops. Abdomen: Soft, nontender, and nondistended. Bowel sounds positive in all 4 quadrants. Genitourinary: Deferred. Extremities: No cyanosis, no clubbing, no edema. Peripheral pulses palpable. Neurologic: Cranial nerves II through XII grossly intact. The patient is awake, alert, and oriented. Results Result Diagram: 06/15/170 06/15/17 0440 Results 24 hrs Laboratory Tests Test 06/14/17 13:30 06/15/17 04:40 Urine Opiates Screen Negative Urine Barbiturates Negative Urine Amphetamines Screen Negative Urine Benzodiazepines Screen Negative Urine Cocaine Screen Negative Urine Cannabinoids Negative White Blood Count 7.8 Red Blood Count 4.94 Hemoglobin 15.3 Hematocrit 44.8 Mean Corpuscular Volume 90.7 Mean Corpuscular Hemoglobin 31.0 Mean Corpuscular Hemoglobin Concent 34.2 Red Cell Distribution Width 12.3 Platelet Count 222 # Mean Platelet Volume 10.6 H Neutrophils % 50.4 Lymphocytes % 33.6 Monocytes % 9.7 Eosinophils % 5.0 Basophils % 0.9 Nucleated Red Blood Cells % 0.0 Neutrophils # 3.9 Lymphocytes # 2.6 Monocytes # 0.8 Eosinophils # 0.4 Basophils # 0.1 Nucleated Red Blood Cells # 0.0 Sodium Level 141 Potassium Level 4.5 Chloride Level 102 Carbon Dioxide Level 32 H Anion Gap 12 Blood Urea Nitrogen 12 Creatinine 0.85 Glucose Level 79 Calcium Level 9.4 Phosphorus Level 4.1 Magnesium Level 1.8 Creatine Kinase 3000 #H Medications Medications Current Medications Sodium Chloride (NS) 1,000 ml @ 125 mls/hr Q8H IV Last administered on 06:00; Admin Dose 125 MLS/HR; Start 06/10/17 at 14:04 Ondansetron HCl (Zofran Inj) 4 mg Q6H PRN IV NAUSEA AND/OR VOMITING; Start at 14:30 Acetaminophen (Tylenol Tab) 650 mg Q6H PRN PO PAIN LEVEL 1-3 OR FEVER Last administered on 06/10/17 19:55; Admin Dose 650 MG; Start 06/10/17 at 14:30 Acetaminophen (Tylenol Supp) 650 mg Q6H PRN [place] PAIN LEVEL 1-3 OR FEVER; Start 06/10/17 at 14:30 Docusate Sodium (Colace) 100 mg Q12H PRN PO CONSTIPATION; Start 06/10/17 at 14: 30 Magnesium Hydroxide (Milk Of Mag) 30 ml DAILY PRN PO CONSTIPATION; Start at 14:30 Bisacodyl (Dulcolax Supp) 10 mg DAILY PRN [place] CONSTIPATION; Start 06/10/17 at 14 :30 Lorazepam (Ativan) 0.5 mg Q2 PRN IV agitation; Start 06/10/17 at 14:30 Olanzapine (Zyprexa Zydis) 5 mg Q8 PRN ODT agitation; Start 06/10/17 at 17:00 Tramadol HCl (Ultram) 50 mg Q6H PRN PO pain Last administered on 06/11/17 08: 13; Admin Dose 50 MG; Start 06/10/17 at 23:30 Gabapentin (Neurontin) 100 mg BID PO Last administered on 06/15/17 09:41; Admin Dose 100 MG; Start 06/11/17 at 11:00 Pantoprazole (Protonix Tab) 40 mg DAILY@06 PO Last administered on 06/15/17 05 :32; Admin Dose 40 MG; Start 06/13/17 at 06:00 SAHUN BRADEN NP Jun 15, 2017 10:27
[2017-06-15 13:59] VITALS: BP 134/76; RESP 20
[2017-06-15 19:42] VITALS: BP 134/80; RESP 18
[2017-06-16 02:00] VITALS: BP 129/76; RESP 21
[2017-06-16] MEDS: PANTOPRAZOLE (EC) 40 MG TAB PO SCH (05:31)
[2017-06-16 05:38] LABS: BASOPHIL # 0.1 10^3/ul (0.0-0.1); BASOPHILS % 0.7 % (0.0-2.0); EOSINOPHILS # 0.3 10^3/ul (0.0-0.5); EOSINOPHILS % 4.3 % (0.0-7.0); HEMOGLOBIN 14.7 g/dl (14.0-18.0); LYMPHOCYTES # 2.7 10^3/ul (0.8-2.9); LYMPHOCYTES % 34.8 % (15.0-51.0); MEAN CORPUSCULAR HEMOGLOBIN 30.8 pg (29.0-33.0); MEAN CORPUSCULAR HGB CONC 34.2 g/dl (32.0-37.0); MONOCYTE # 0.7 10^3/ul (0.3-0.9); MONOCYTES % 9.4 % (0.0-11.0); NEUTROPHIL # 3.9 10^3/ul (1.6-7.5); NEUTROPHILS % 50.3 % (39.0-77.0); PLATELET COUNT 229 10^3/UL (140-415); RED BLOOD COUNT 4.78 10^6/ul (4.70-6.10); RED CELL DISTRIBUTION WIDTH 12.2 % (11.5-14.5); WHITE BLOOD COUNT 7.7 10^3/ul (4.8-10.8)
[2017-06-16 06:16] LABS: CALCIUM 9.4 mg/dl (8.4-10.2); CREATININE 0.8 mg/dl (0.61-1.24); POTASSIUM 4.1 mmol/L (3.5-5.1)
[2017-06-16] MEDS: SOD CHLORIDE 0.9% 1,000 ML IV SCH ×3 (06:57→23:26)
[2017-06-16] MEDS: GABAPENTIN 100 MG CAP PO SCH ×2 (09:02→20:38)
[2017-06-16 09:03] VITALS: BP 132/84; PULSE 89; RESP 18
--- NOTE | 2017-06-16 12:02 | PN ---
Date/Time of Note Date/Time of Note DATE: 06/16/17 TIME: 12:02 Assessment/Plan VTE Prophylaxis VTE Prophylaxis Intervention: ambulation Lines/Catheters IV C[facility]ter Type (from [facility]): Peripheral IV Urinary Cath still in place: No Assessment/Plan Chief Complaint/Hosp Course 1. Suicidal ideation with suicidal attempt. Status post evaluation by telemetry psych. Patient on 5150 hold. Continue mood stabilizers. 2. Rhabdomyolysis. Continue IV hydration. Renal function within normal limits. 3. Substance abuse. Status post evaluation by telemetry psych. Cessation advised. 4. Acute encephalopathy. Most probably toxic metabolic secondary to drug overdose. Resolved. 5. Fluids, electrolytes, and nutrition. Regular diet. 6. DVT prophylaxis. Ambulation. 7. Plan. Continue aggressive IV hydration. Continue current care. Continue one-to-one sitter. We will discharge the patient to inpatient psych facility once the patient's rhabdomyolysis is better. Case discussed with . Problems: Subjective 24 Hr Interval Summary Free Text/Dictation Remains stable. Exam/Review of Systems Vital Signs Vitals Vital Signs Date Time Temp Pulse Resp B/P Pulse Ox O2 Delivery O2 Flow Rate FiO2 06/16/17 09:03 98.7 89 18 132/84 98 Room Air Intake and Output 06/15/17 06/15/17 06/16/17 15:00 23:00 07:00 Intake Total 1000 ml 2500 ml 1840 ml Output Total 400 ml Balance 1000 ml 2100 ml 1840 ml Exam General: Adequately build 27 year-old male lying in bed in no apparent distress. HEENT: Normocephalic, atraumatic. Eyes: Anicteric sclerae, conjunctivae clear. ENT: Nasal septum midline, oral mucosa moist. Poor dentition. Neck supple, no JVD noticed. Respiratory: Bilaterally clear breath sounds. No use of accessory muscles of respiration. No adventitious breath sounds. Cardiovascular: S1, S2 heard. No murmurs or gallops. Abdomen: Soft, nontender, and nondistended. Bowel sounds positive in all 4 quadrants. Genitourinary: Deferred. Extremities: No cyanosis, no clubbing, no edema. Peripheral pulses palpable. Neurologic: Cranial nerves II through XII grossly intact. The patient is awake, alert, and oriented. Results Result Diagram: 06/16/17 0429 06/16/17 0429 Results 24 hrs Laboratory Tests Test 06/16/17 04:29 White Blood Count 7.7 Red Blood Count 4.78 Hemoglobin 14.7 Hematocrit 43.0 Mean Corpuscular Volume 90.0 Mean Corpuscular Hemoglobin 30.8 Mean Corpuscular Hemoglobin Concent 34.2 Red Cell Distribution Width 12.2 Platelet Count 229 Mean Platelet Volume 10.0 Neutrophils % 50.3 Lymphocytes % 34.8 Monocytes % 9.4 Eosinophils % 4.3 Basophils % 0.7 Nucleated Red Blood Cells % 0.0 Neutrophils # 3.9 Lymphocytes # 2.7 Monocytes # 0.7 Eosinophils # 0.3 Basophils # 0.1 Nucleated Red Blood Cells # 0.0 Sodium Level 140 Potassium Level 4.1 Chloride Level 102 Carbon Dioxide Level 30 Anion Gap 12 Blood Urea Nitrogen 14 Creatinine 0.80 Glucose Level 84 Calcium Level 9.4 Creatine Kinase 1206 #H Medications Medications Current Medications Sodium Chloride (NS) 1,000 ml @ 125 mls/hr Q8H IV Last administered on 06:57; Admin Dose 125 MLS/HR; Start 06/10/17 at 14:04 Ondansetron HCl (Zofran Inj) 4 mg Q6H PRN IV NAUSEA AND/OR VOMITING; Start at 14:30 Acetaminophen (Tylenol Tab) 650 mg Q6H PRN PO PAIN LEVEL 1-3 OR FEVER Last administered on 06/10/17 19:55; Admin Dose 650 MG; Start 06/10/17 at 14:30 Acetaminophen (Tylenol Supp) 650 mg Q6H PRN [place] PAIN LEVEL 1-3 OR FEVER; Start 06/10/17 at 14:30 Docusate Sodium (Colace) 100 mg Q12H PRN PO CONSTIPATION; Start 06/10/17 at 14: 30 Magnesium Hydroxide (Milk Of Mag) 30 ml DAILY PRN PO CONSTIPATION; Start at 14:30 Bisacodyl (Dulcolax Supp) 10 mg DAILY PRN [place] CONSTIPATION; Start 06/10/17 at 14 :30 Lorazepam (Ativan) 0.5 mg Q2 PRN IV agitation; Start 06/10/17 at 14:30 Olanzapine (Zyprexa Zydis) 5 mg Q8 PRN ODT agitation; Start 06/10/17 at 17:00 Tramadol HCl (Ultram) 50 mg Q6H PRN PO pain Last administered on 06/11/17 08: 13; Admin Dose 50 MG; Start 06/10/17 at 23:30 Gabapentin (Neurontin) 100 mg BID PO Last administered on 06/16/17 09:02; Admin Dose 100 MG; Start 06/11/17 at 11:00 Pantoprazole (Protonix Tab) 40 mg DAILY@06 PO Last administered on 06/16/17 05 :31; Admin Dose 40 MG; Start 06/13/17 at 06:00 SHAUN BRADEN NP Jun 16, 2017 12:02
[2017-06-16 13:00] VITALS: BP 140/107; PULSE 71; RESP 16
[2017-06-16 19:43] VITALS: BP 128/62; RESP 18
[2017-06-17 02:04] VITALS: BP 137/65; RESP 20
[2017-06-17 06:00] LABS: BASOPHIL # 0.1 10^3/ul (0.0-0.1); BASOPHILS % 0.9 % (0.0-2.0); EOSINOPHILS # 0.4 10^3/ul (0.0-0.5); HEMATOCRIT 42.8 % (42.0-52.0); HEMOGLOBIN 14.4 g/dl (14.0-18.0); LYMPHOCYTES # 3.1 10^3/ul (0.8-2.9); LYMPHOCYTES % 34.7 % (15.0-51.0); MEAN CORPUSCULAR HEMOGLOBIN 30.4 pg (29.0-33.0); MEAN CORPUSCULAR HGB CONC 33.6 g/dl (32.0-37.0); MEAN CORPUSCULAR VOLUME 90.5 fl (82.0-101.0); MEAN PLATELET VOLUME 10.2 fl (7.4-10.4); MONOCYTE # 0.9 10^3/ul (0.3-0.9); MONOCYTES % 10.2 % (0.0-11.0); NEUTROPHIL # 4.4 10^3/ul (1.6-7.5); NEUTROPHILS % 49.4 % (39.0-77.0); PLATELET COUNT 221 10^3/UL (140-415); RED BLOOD COUNT 4.73 10^6/ul (4.70-6.10); RED CELL DISTRIBUTION WIDTH 12.7 % (11.5-14.5); WHITE BLOOD COUNT 8.9 10^3/ul (4.8-10.8)
[2017-06-17] MEDS: PANTOPRAZOLE (EC) 40 MG TAB PO SCH (06:02)
[2017-06-17 06:35] LABS: CALCIUM 9.7 mg/dl (8.4-10.2); CREATININE 0.71 mg/dl (0.61-1.24); POTASSIUM 4.3 mmol/L (3.5-5.1)
[2017-06-17 08:00] VITALS: BP 116/65; RESP 18
[2017-06-17] MEDS: GABAPENTIN 100 MG CAP PO SCH ×2 (08:20→21:28)
[2017-06-17] MEDS: SOD CHLORIDE 0.9% 1,000 ML IV SCH ×3 (08:21→22:04)
[2017-06-17 14:00] VITALS: BP 132/64; RESP 20
--- NOTE | 2017-06-17 15:24 | PN ---
Date/Time of Note Date/Time of Note DATE: 06/17/17 TIME: 15:22 Assessment/Plan VTE Prophylaxis VTE Prophylaxis Intervention: SCD's Lines/Catheters IV C[facility]ter Type (from [facility]): Peripheral IV Urinary Cath still in place: No Assessment/Plan Assessment/Plan 1. Suicidal ideation with suicidal attempt. Status post evaluation by telemetry psych. Patient on 5150 hold. Continue mood stabilizers. 2. Rhabdomyolysis. improved 3. Substance abuse. Status post evaluation by telemetry psych. Cessation advised. 4. Acute encephalopathy. Most probably toxic metabolic secondary to drug overdose. Resolved. 5. Medically cleared to transfer to psych facility Subjective 24 Hr Interval Summary Free Text/Dictation no complaint Exam/Review of Systems Vital Signs Vitals Vital Signs Date Time Temp Pulse Resp B/P Pulse Ox O2 Delivery O2 Flow Rate FiO2 06/17/17 08:00 98.6 72 18 116/65 96 06/16/17 13:00 Room Air Intake and Output 06/16/17 06/16/17 06/17/17 15:00 23:00 07:00 Intake Total 1000 ml 1480 ml 3605 ml Balance 1000 ml 1480 ml 3605 ml Exam Constitutional: alert, oriented, well developed Head: atraumatic, normocephalic Eyes: EOMI, PERRL, nl conjunctiva, nl lids ENMT: nl external ears & nose, nl lips & teeth, nl nasal mucosa & septum Neck: non-tender, supple Respiratory: clear to auscultation, normal air movement, No congested cough, No crackles/rales, No diminished breath sounds, No intercostal retraction, No labored breathing, No other, No respirations, No tactile fremitus, No wheezing Cardiovascular: nl pulses, regular rate and rhythm, No S3, No S4, No bruits, No diastolic murmur, No edema, No gallop, No irregular rhythm, No jugular venous distention (JVD), No murmurs/extra sounds, No other, No rub, No systolic murmur Gastrointestinal: nl liver, spleen, non-tender, soft, No ascites, No bowel sounds, No distended, No firm, No hepatomegaly, No mass , No other, No rebound or guarding, No splenomegaly, No surgical scars, No tender Musculoskeletal: nl extremities to inspection Extremities: normal pulses, No calf tenderness, No clubbing, No cyanosis, No edema, No other, No palpable cord, No pitting pedal edema, No tenderness Neurological: PAVILION CUTTER II-XII intact, nl mental status, nl speech, nl strength Skin: nl turgor Lymph: nl lymph nodes Results Result Diagram: 06/17/1744406/17/17444 Results 24 hrs Laboratory Tests Test 06/17/17 04:45 White Blood Count 8.9 Red Blood Count 4.73 Hemoglobin 14.4 Hematocrit 42.8 Mean Corpuscular Volume 90.5 Mean Corpuscular Hemoglobin 30.4 Mean Corpuscular Hemoglobin Concent 33.6 Red Cell Distribution Width 12.7 Platelet Count 221 Mean Platelet Volume 10.2 Neutrophils % 49.4 Lymphocytes % 34.7 Monocytes % 10.2 Eosinophils % 4.0 Basophils % 0.9 Nucleated Red Blood Cells % 0.0 Neutrophils # 4.4 Lymphocytes # 3.1 H Monocytes # 0.9 Eosinophils # 0.4 Basophils # 0.1 Nucleated Red Blood Cells # 0.0 Sodium Level 139 Potassium Level 4.3 Chloride Level 102 Carbon Dioxide Level 30 Anion Gap 11 Blood Urea Nitrogen 13 Creatinine 0.71 Glucose Level 87 Calcium Level 9.7 Creatine Kinase 670 H Medications Medications Current Medications Sodium Chloride (NS) 1,000 ml @ 125 mls/hr Q8H IV Last administered on 08:21; Admin Dose 125 MLS/HR; Start 06/10/17 at 14:04 Ondansetron HCl (Zofran Inj) 4 mg Q6H PRN IV NAUSEA AND/OR VOMITING; Start at 14:30 Acetaminophen (Tylenol Tab) 650 mg Q6H PRN PO PAIN LEVEL 1-3 OR FEVER Last administered on 06/10/17 19:55; Admin Dose 650 MG; Start 06/10/17 at 14:30 Acetaminophen (Tylenol Supp) 650 mg Q6H PRN [place] PAIN LEVEL 1-3 OR FEVER; Start 06/10/17 at 14:30 Docusate Sodium (Colace) 100 mg Q12H PRN PO CONSTIPATION; Start 06/10/17 at 14: 30 Magnesium Hydroxide (Milk Of Mag) 30 ml DAILY PRN PO CONSTIPATION; Start at 14:30 Bisacodyl (Dulcolax Supp) 10 mg DAILY PRN [place] CONSTIPATION; Start 06/10/17 at 14 :30 Lorazepam (Ativan) 0.5 mg Q2 PRN IV agitation; Start 06/10/17 at 14:30 Olanzapine (Zyprexa Zydis) 5 mg Q8 PRN ODT agitation; Start 06/10/17 at 17:00 Tramadol HCl (Ultram) 50 mg Q6H PRN PO pain Last administered on 06/11/17 08: 13; Admin Dose 50 MG; Start 06/10/17 at 23:30 Gabapentin (Neurontin) 100 mg BID PO Last administered on 06/17/17 08:20; Admin Dose 100 MG; Start 06/11/17 at 11:00 Pantoprazole (Protonix Tab) 40 mg DAILY@06 PO Last administered on 06/17/17 06 :02; Admin Dose 40 MG; Start 06/13/17 at 06:00 ISABEL KIRAN MD Jun 17, 2017 15:24
[2017-06-17 19:29] VITALS: BP 131/74; RESP 16
[2017-06-18] MEDS: SOD CHLORIDE 0.9% 1,000 ML IV SCH ×3 (00:31→14:04)
[2017-06-18 02:25] VITALS: BP 132/66; RESP 18
[2017-06-18] MEDS: PANTOPRAZOLE (EC) 40 MG TAB PO SCH (06:16)
[2017-06-18 09:00] VITALS: BP 130/80; PULSE 87; RESP 18
[2017-06-18] MEDS: GABAPENTIN 100 MG CAP PO SCH (09:22)
[2017-06-18 14:00] VITALS: BP 123/72; RESP 20
--- NOTE | 2017-06-18 15:40 | DS ---
Date/Time of Note Date/Time of Note DATE: 06/18/17 TIME: 15:32 Discharge Summary Admission/Discharge Info Admit Date/Time Jun 10, 2017 at 13:16 Discharge Date/Time Discharge Diagnosis 1. S/p suicidal ideation with suicidal attempt, denies suicidal or homicidal, cleared by PET team for discharge, follow up with psychiatry outpatient 2. Rhabdomyolysis. improved 3. Substance abuse. Status post evaluation by telemetry psych. Cessation advised. 4. Acute encephalopathy. Most probably toxic metabolic secondary to drug overdose. Resolved. Patient Condition: Stable Hx of Present Illness This is a 27-year-old male with extensive history of methamphetamine use who was brought to [facility] by his family who requesting to him to have be arrested due to altered mentation from methamphetamine. Of note it was reported that the patient had been using methamphetamine for 3 days duration. He initially denied any suicidal ideation however after interview he denied any suicidal ideation. He denied any plan for suicide attempt either. I did also discuss with the patient's father who was there during his altered mental state. According to the father patient had been missing since Wednesday. He came back yesterday and started to argue with his father. After that patient went into the laundry room near their house and attempted to hang himself when a neighbor saw him and stopped him. Patient at that time reportedly swallowed methamphetamines (amount unknown). He was then brought to [facility] for further evaluation. On examination patient did have CBC done that was unremarkable. He was also noted to be dehydrated and had a creatinine kinase of 1000 141,543. He remained afebrile. Slightly tachycardic at heart rate at 108 likely from methamphetamine use. Of note patient only reports using methamphetamine and marijuana. He also reports smoking cigarettes a pack a day. We will evaluate him for the aformentiond issues. Hospital Course For suicidal ideation and attempt, tele-psych was consulted, patient was prescribed zyprexa prn. Patient is doing well, denies suicidal or homicidal. Patient is seen and cleared by PET team for discharge. He is instructed to have his PCP to refer him to follow up with a psychiatrist outpatient. Patient was found having rhabdomyolysis with CPK [id number], patient was given aggressive IVF rehydration. CPK is down to 670 on 06/17/2017. His renal function is within normal limit after admission. Home Meds Reported Medications Ibuprofen* (Advil*) 200 Mg Capsule, 200 MG PO Q6H Y for PAIN, CAP 06/09/17 Follow-up Plan PCP and psychiatry in one week Primary Care Provider Care Physician ISABEL Mckeon MD Jun 18, 2017 15:40
== END 2017-06-18 16:15 | disposition home or self-care (01) | DRG 917 ==
LOC: E/R 20:28 → PP2 06-10 13:16
PROVIDERS: ADMIT Hospitalist; ATTEND Hospitalist
DX: T43.622A Poisoning by amphetamines, intentional self-harm, initial encounter (principal); G92 Toxic encephalopathy; M62.82 Rhabdomyolysis; F15.129 Other stimulant abuse with intoxication, unspecified; E86.0 Dehydration; F15.929 Other stimulant use, unspecified with intoxication, unspecified; M25.571 Pain in right ankle and joints of right foot; Y92.018 Other place in single-family (private) house as the place of occurrence of the external cause
CPT/HCPCS: 73630; 80048; 80053; 80061; 80307; 82550; 83036; 83735; 84100; 84436; 84443; 84479; 85025; 96361; 96372; 96374; 96376; C9113; J1200; J1630; J2060; J7030